=== PATIENT | male | born 1990 | race African-American/Black ===

== ENCOUNTER 2021-04-16 20:47 | Emergency (ER) | payer SELFPAY ==
[~2021-04-16] VITALS: Ht 180.3 cm; Wt 102.0 kg
[2021-04-16] MEDS ORDERED: EPINEPHRINE 1:1000 1 MG/ML AMP IM ONE (21:00)
[2021-04-16] MEDS ORDERED: SODIUM CHLORIDE 0.9% 1,000 ML IV ONE (21:00)
[2021-04-16] MEDS ORDERED: DIPHENHYDRAMINE 50MG/ML VIAL IV ONE (21:15)
[2021-04-16] MEDS ORDERED: METHYLPREDNISOLONE SOD SUCC 125 MG/2 ML VIAL IV ONE (21:15)
[2021-04-16] MEDS ORDERED: FAMOTIDINE 20MG/2ML VIAL IV ONE (21:15)
[2021-04-16] MEDS ORDERED: ONDANSETRON HCL 4MG/2ML INJ IV SCH (21:30)
[2021-04-16 22:12] VITALS: BP 126/75
== END 2021-04-16 22:26 | disposition left against medical advice (07) ==
LOC: ER 20:47
DX: T78.2XXA Anaphylactic shock, unspecified, initial encounter (principal); Z88.2 Allergy status to sulfonamides; Z98.890 Other specified postprocedural states
CPT/HCPCS: 96361; 96372; 96374; 96375; 99284; J1200; J2405; J2930; J3490; J7030; 90471